=== PATIENT | female | born 1995 | race Caucasian/White ===

== ENCOUNTER 2016-12-15 15:59 | Inpatient (IN) | payer MEDICAID ==
[~2016-12-15] VITALS: Ht 154.9 cm; Wt 59.0 kg
[2016-12-15] MEDS ORDERED: INFLUENZA VIRUS VACCINE QVS 2016-17 (3YR+)/PF 60 MCG/0.5 ML SYRINGE IM ONE (19:45)
[2016-12-15] MEDS ORDERED: ZOLPIDEM TARTRATE 10 MG TABLET PO PRN (19:45)
[2016-12-15] MEDS ORDERED: PNEUMOCOCCAL VACCINE POLYVALENT 0.5 ML VIAL [PPSV23] IM ONE (19:45)
[2016-12-15] MEDS ORDERED: LAMO100 PO (20:08)
[2016-12-15] MEDS ORDERED: BUSP5TAB20 PO (20:08)
[2016-12-15] MEDS ORDERED: GABA-531 PO (20:08)
[2016-12-15 20:55] VITALS: BP 117/71
[2016-12-15] MEDS ORDERED: DOCUSATE SODIUM 100 MG CAPSULE PO PRN (23:45)
[2016-12-16 00:10] VITALS: BP 115/62
[2016-12-16 08:00] VITALS: BP 112/65
[2016-12-16 08:30] LABS: BASOPHILS # (AUTO) 0.03 K/uL (0.00-0.20); BASOPHILS % (AUTO) 0.4 % (0.0-2.0); EOSINOPHILS # (AUTO) 0.23 K/uL (0.00-0.70); EOSINOPHILS % (AUTO) 2.93 % (1.0-6.0); HEMATOCRIT 43.5 % (36-46); HEMOGLOBIN 14.8 g/dL (12.0-16.0); LYMPHOCYTES # (AUTO) 2.2 K/uL (1.0-4.8); LYMPHOCYTES % (AUTO) 28.1 % (22.0-44.0); MEAN CORPUSCULAR HEMOGLOBIN 29.7 pg (26.0-34.0); MEAN CORPUSCULAR VOLUME 88 fL (80-100); MONOCYTES # (AUTO) 0.4 K/uL (0.1-1.0); MONOCYTES % (AUTO) 5.1 % (2.0-9.0); NEUTROPHILS # (AUTO) 5.1 K/uL (1.8-7.7); NEUTROPHILS % (AUTO) 63.6 % (40.0-70.0); PLATELET COUNT (AUTO) 226 K/uL (150-450); RED BLOOD CELL COUNT(AUTO) 4.97 MIL/uL (4.00-5.20); RED CELL DISTRIBUTION WIDTH 13.1 % (11.5-14.5)
[2016-12-16 09:02] LABS: ALANINE AMINOTRANSFERASE 29 U/L (12-78); ALBUMIN 3.6 g/dL (3.4-5.0); ANION GAP 8 mmol/L (8-16); ASPARTATE AMINOTRANSFERASE 11 U/L (15-37); BILIRUBIN,TOTAL 0.4 mg/dL (0.1-1.0); CALCIUM, TOTAL 8.5 mg/dL (8.8-10.5); CARBON DIOXIDE 28 mmol/L (22-29); CHLORIDE 108 mmol/L (98-107); CREATININE 1.09 mg/dL (0.60-1.30); GLOMERULAR FILTR. RATE CALC > 60 mL/min (>60); POTASSIUM 3.7 mmol/L (3.5-5.1); SODIUM SERUM 144 mmol/L (136-145); THYROID STIMULATING HORMONE 0.85 uIU/mL (0.36-3.74); TOTAL PROTEIN, SERUM 6.7 g/dL (6.4-8.2); UREA NITROGEN, BLOOD 12 mg/dL (7-18)
[2016-12-16 16:03] VITALS: BP 109/62
[2016-12-16] MEDS ORDERED: IBUPROFEN 400 MG TABLET PO PRN (21:15)
[2016-12-16] MEDS ORDERED: ACETAMINOPHEN 325 MG TABLET PO PRN (21:15)
[2016-12-16] MEDS: QUEtiapine FUMARATE 100 MG TABLET PO SCH (22:05)
[2016-12-17 03:50] VITALS: BP 109/60
[2016-12-17 08:14] LABS: BASOPHILS # (AUTO) 0.03 K/uL (0.00-0.20); BASOPHILS % (AUTO) 0.3 % (0.0-2.0); EOSINOPHILS # (AUTO) 0.28 K/uL (0.00-0.70); EOSINOPHILS % (AUTO) 3.13 % (1.0-6.0); HEMATOCRIT 42.4 % (36-46); HEMOGLOBIN 14.3 g/dL (12.0-16.0); LYMPHOCYTES # (AUTO) 2.8 K/uL (1.0-4.8); LYMPHOCYTES % (AUTO) 31.6 % (22.0-44.0); MEAN CORPUSCULAR HEMOGLOBIN 29.7 pg (26.0-34.0); MEAN CORPUSCULAR HGB CONC 33.6 G/dL (31.0-37.0); MEAN CORPUSCULAR VOLUME 88 fL (80-100); MONOCYTES # (AUTO) 0.6 K/uL (0.1-1.0); MONOCYTES % (AUTO) 6.8 % (2.0-9.0); NEUTROPHILS # (AUTO) 5.2 K/uL (1.8-7.7); NEUTROPHILS % (AUTO) 58.1 % (40.0-70.0); PLATELET COUNT (AUTO) 202 K/uL (150-450); RED CELL DISTRIBUTION WIDTH 13.1 % (11.5-14.5); WHITE BLOOD COUNT (AUTO) 8.9 K/uL (4.5-11.0)
[2016-12-17 08:36] VITALS: BP 112/62
[2016-12-17] MEDS: GABAPENTIN 300 MG CAPSULE PO SCH ×2 (09:40→16:53)
[2016-12-17] MEDS: LamoTRIgine 100 MG TABLET PO SCH ×2 (09:40→16:54)
[2016-12-17] MEDS: SERTRALINE HCL 50 MG TABLET PO SCH (09:40)
[2016-12-17 16:04] VITALS: BP 111/65
[2016-12-17] MEDS: HALOPERIDOL 5 MG TABLET PO PRN (16:59)
[2016-12-17] MEDS: QUEtiapine FUMARATE 100 MG TABLET PO SCH (21:18)
[2016-12-18 07:08] VITALS: BP 107/54
[2016-12-18] MEDS: GABAPENTIN 300 MG CAPSULE PO SCH ×2 (08:46→17:15)
[2016-12-18] MEDS: SERTRALINE HCL 50 MG TABLET PO SCH (08:46)
[2016-12-18] MEDS: LamoTRIgine 100 MG TABLET PO SCH ×2 (08:46→17:15)
[2016-12-18 09:49] VITALS: BP 121/64
[2016-12-18 16:11] VITALS: BP 124/79
[2016-12-18] MEDS: QUEtiapine FUMARATE 100 MG TABLET PO SCH (20:45)
[2016-12-19 06:40] VITALS: BP 100/60
[2016-12-19 08:30] VITALS: BP 109/59
[2016-12-19] MEDS: LamoTRIgine 100 MG TABLET PO SCH ×2 (10:04→16:36)
[2016-12-19] MEDS: GABAPENTIN 300 MG CAPSULE PO SCH ×2 (10:05→16:36)
[2016-12-19] MEDS: SERTRALINE HCL 50 MG TABLET PO SCH (10:05)
[2016-12-19] MEDS: LORazepam 2 MG TABLET PO PRN ×2 (13:37→20:48)
[2016-12-19 16:05] VITALS: BP 112/68
[2016-12-19] MEDS: QUEtiapine FUMARATE 100 MG TABLET PO SCH (20:18)
[2016-12-20 01:35] VITALS: BP 106/69
[2016-12-20] MEDS: LamoTRIgine 100 MG TABLET PO SCH ×2 (08:28→16:09)
[2016-12-20] MEDS: SERTRALINE HCL 50 MG TABLET PO SCH (08:28)
[2016-12-20] MEDS: GABAPENTIN 300 MG CAPSULE PO SCH ×2 (08:28→16:09)
[2016-12-20] MEDS: LORazepam 2 MG TABLET PO PRN ×2 (08:31→19:15)
[2016-12-20 09:04] VITALS: BP 139/88
[2016-12-20 16:05] VITALS: BP 114/73
[2016-12-20] MEDS: QUEtiapine FUMARATE 100 MG TABLET PO SCH (21:00)
[2016-12-21 01:23] VITALS: BP 100/70
[2016-12-21] MEDS: LamoTRIgine 100 MG TABLET PO SCH ×2 (08:44→16:14)
[2016-12-21] MEDS: SERTRALINE HCL 50 MG TABLET PO SCH (08:44)
[2016-12-21] MEDS: GABAPENTIN 300 MG CAPSULE PO SCH ×2 (08:44→16:14)
[2016-12-21 08:46] VITALS: BP 110/57
[2016-12-21] MEDS ORDERED: SERTRALINE HCL 50 MG TABLET PO ONE (10:00)
[2016-12-21] MEDS: QUEtiapine FUMARATE 200 MG TABLET PO SCH ×2 (10:32→20:08)
[2016-12-21 16:11] VITALS: BP 121/66
[2016-12-22 05:40] VITALS: BP 117/60
[2016-12-22 08:10] VITALS: BP 110/78
[2016-12-22] MEDS: SERTRALINE HCL 100 MG TABLET PO SCH (08:20)
[2016-12-22] MEDS: QUEtiapine FUMARATE 200 MG TABLET PO SCH ×2 (08:20→20:15)
[2016-12-22] MEDS: GABAPENTIN 300 MG CAPSULE PO SCH ×2 (08:20→16:09)
[2016-12-22] MEDS: LamoTRIgine 100 MG TABLET PO SCH ×2 (08:20→16:09)
[2016-12-22 10:45] VITALS: BP 115/73
[2016-12-22 10:50] VITALS: BP 115/73
[2016-12-22 16:01] VITALS: BP 112/68
[2016-12-22 17:25] VITALS: BP 112/68
[2016-12-23 06:00] VITALS: BP 108/71
[2016-12-23 06:08] VITALS: BP 108/71
[2016-12-23 08:53] VITALS: BP 116/65
[2016-12-23] MEDS: SERTRALINE HCL 100 MG TABLET PO SCH (08:55)
[2016-12-23] MEDS: GABAPENTIN 300 MG CAPSULE PO SCH ×2 (08:55→16:03)
[2016-12-23] MEDS: LamoTRIgine 100 MG TABLET PO SCH ×2 (08:55→16:03)
[2016-12-23] MEDS: HALOPERIDOL 5 MG TABLET PO PRN (15:15)
[2016-12-23 16:04] VITALS: BP 110/68
[2016-12-23] MEDS: QUEtiapine FUMARATE 200 MG TABLET PO SCH (20:36)
[2016-12-24] VITALS (7 sets, daily range): BP systolic 105–112; BP diastolic 59–64
[2016-12-24] MEDS: GABAPENTIN 300 MG CAPSULE PO SCH ×2 (08:30→17:46)
[2016-12-24] MEDS: LamoTRIgine 100 MG TABLET PO SCH ×2 (08:30→17:47)
[2016-12-24] MEDS: SERTRALINE HCL 100 MG TABLET PO SCH (08:30)
[2016-12-24] MEDS: QUEtiapine FUMARATE 300 MG TABLET PO SCH (20:42)
[2016-12-25 00:04] VITALS: BP 109/60
[2016-12-25 00:05] VITALS: BP 109/60
[2016-12-25] MEDS: LamoTRIgine 100 MG TABLET PO SCH ×2 (08:21→16:13)
[2016-12-25] MEDS: SERTRALINE HCL 100 MG TABLET PO SCH (08:21)
[2016-12-25] MEDS: GABAPENTIN 300 MG CAPSULE PO SCH ×2 (08:21→16:13)
[2016-12-25 12:46] VITALS: BP 106/64
[2016-12-25 16:08] VITALS: BP 100/67
[2016-12-25 16:37] VITALS: BP 100/67
[2016-12-25] MEDS: QUEtiapine FUMARATE 300 MG TABLET PO SCH (20:41)
[2016-12-26 04:34] VITALS: BP 103/66
[2016-12-26] MEDS: LamoTRIgine 100 MG TABLET PO SCH (07:49)
[2016-12-26] MEDS: GABAPENTIN 300 MG CAPSULE PO SCH (07:50)
[2016-12-26] MEDS: SERTRALINE HCL 100 MG TABLET PO SCH (07:50)
[2016-12-26 08:12] VITALS: BP 100/64
[2016-12-26] MEDS ORDERED: QUET300T2 PO (08:43)
[2016-12-26] MEDS ORDERED: SERT100T12 PO (08:43)
== END 2016-12-26 10:35 | disposition home or self-care (01) | DRG 753 ==
LOC: EDSTATUS 15:59 → B2S 19:44 → EDSTATUS 19:54 → B2S 12-20 11:45
DX: F31.5 Bipolar disorder, current episode depressed, severe, with psychotic features (principal); G40.909 Epilepsy, unspecified, not intractable, without status epilepticus; R45.851 Suicidal ideations; F10.10 Alcohol abuse, uncomplicated; F12.90 Cannabis use, unspecified, uncomplicated; F19.10 Other psychoactive substance abuse, uncomplicated; J45.909 Unspecified asthma, uncomplicated; K59.00 Constipation, unspecified; Z91.5 Personal history of self-harm; Z71.89 Other specified counseling; Z79.899 Other long term (current) drug therapy; Z71.41 Alcohol abuse counseling and surveillance of alcoholic; Z28.21 Immunization not carried out because of patient refusal; Z91.040 Latex allergy status; Z91.010 Allergy to peanuts; Z88.8 Allergy status to other drugs, medicaments and biological substances; Z91.018 Allergy to other foods
CPT/HCPCS: 83036; 84439; 84443; 87081